=== PATIENT | female | born 1975 | race African-American/Black ===

== ENCOUNTER 2023-06-05 05:22 | Day surgery (SDC) | payer OTHER ==
[2023-06-03 13:38] VITALS: BMI 29.5
[2023-06-05 10:39] VITALS: BP 124/60; PULSE 64; RESP 14; TEMP 98
== END 2023-06-05 10:30 | disposition home or self-care (01) ==
LOC: JASU-ENDO 05:22
PROVIDERS: ATTEND Internal Medicine Gastroenterology
PROC: 0DBP8ZX Excision of Rectum, Via Natural or Artificial Opening Endoscopic, Diagnostic (ICD-10-PCS; principal; 2023-06-05 10:00)
DX: Z12.11 Encounter for screening for malignant neoplasm of colon (principal); D12.0 Benign neoplasm of cecum
CPT/HCPCS: 81025; 88305-TC